=== PATIENT | male | born 1965 | race Two or more races ===

== ENCOUNTER 2025-05-28 08:12 | Inpatient (IN) ==
--- NOTE | 2025-05-28 08:30 | Emergency Department Note ---
Impression & Plan Chest pain, Acute CHF, URI (upper respiratory infection), Abdominal pain ED Provider Note Provider: Armani Sargent MD CHIEF COMPLAINT: Chest pain, abdominal pain, nausea HISTORY OF PRESENT ILLNESS: Patient is a 59-year-old gentleman reported history of diabetes and CHF presenting here via ambulance from the [facility]. 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 Patient evidently over the last 3 days states that experiencing central to thoracic back chest discomfort. Also states he developed during that time some mid abdominal discomfort. Has had nausea and some episodes of vomiting this morning. States he does feel that he swollen little bit. States that he was taken by the "feds "and they did not give him all his medications. Patient states he takes medications to prevent him from swelling. Patient states he does feel somewhat swollen in his legs. No fever or cough or cold reported. No trauma reported. Received 324 mg of aspirin as well as 3 doses of nitroglycerin for hypertension and chest pain and route in the ambulance without significant improvement by his report. PAST MEDICAL HISTORY: As noted above MEDICATIONS: Reviewed medication list from the skilled nursing SOCIAL HISTORY: In immigration attention, primarily speaks Cymraes PHYSICAL EXAM: GENERAL: alert and oriented in no acute distress on stretcher, guards at bedside Head: normocephalic and atraumatic EYES: No injection, discharge or icterus. EOMI. NECK: Trachea midline. Good range of motion ENT: Mucous membranes pink and moist. LUNGS: Airway patent. No retractions. Breath sounds clear but mildly tachypneic HEART: Regular rate and rhythm. No chest wall tenderness with subcutaneous left upper chest wall pacemaker noted ABDOMEN: Soft no guarding but some mild mid abdominal tenderness. No masses appreciable. SKIN: Acyanotic, warm, dry, without rashes EXTREMITIES: Without swelling, tenderness or deformity NEUROLOGICAL: No focal deficits. No aphasia. No facial droop or slurred speech. EK bpm normal sinus rhythm without PVC or PAC. Left axis. LVH changes. Lead 6 ST depression and T wave inversion noted. QTc 525. CONTINUOUS CARDIAC MONITORING: was ordered and showed a heart rate of 90s bpm in normal sinus rhythm occasional PVCs Patient's laboratory studies and imaging reviewed. Differential includes Cardiac ischemia, aortic dissection, pulmonary embolism, pneumothorax, pneumonia, pericarditis, myocarditis, esophageal rupture, GERD, cholecystitis/cholangitis, pancreatitis, musculoskeletal, as well as other pathologies. IMPRESSION/MEDICAL DECISION MAKING: Limited history available in medical record about the patient as he was not known to the area. Patient himself is not the exact best historian. Relates that he may have had medication issues as he has been recently taken into immigration custody. Reports a significant cardiac history and does have an AICD. Will attempt interrogation although he does not know the brand of the device. EKG with LVH changes and some lead 6 changes but no clear STEMI. Chest pain rating to the abdomen with nausea and vomiting. Mildly tender in the abdomen. Question if this is primarily more cardiac in nature. Do question if there is some component of fluid overload given his history of CHF that he tells me and possible medication issues. He is on diuretics and states he has had IV I believe he describes furosemide in the past with good improvement. Blood work is obtained and chest x-ray be obtained. Will look for findings of fluid overload. Patient not hypoxic but is mildly tachypneic. Blood work here without severe anemia, electrolyte abnormalities, or evidence of renal dysfunction. Will complete CTs of the chest abdomen pelvis to exclude PE given his recent travel and retirement as well as his complaints of chest pain and abdominal pain. Chest x-ray with evidence of fluid overload per radiology and my interpretation certainly agree with severe cardiomegaly.. Blood work without significant leukocytosis with some mild anemia of 11.4. Slightly elevated bilirubin AST ALT and alkaline phosphatase 2 point 1/56/75/167. No lipase elevation. Doubt acute hepatitis. Do question if component of fluid overload is causing these changes but again did complete a CT abdomen pelvis to look for any other intra-abdominal processes. Certainly consideration if this could be biliary in nature. Troponin does return elevated 37.6 and I am not sure of his baseline. BNP elevated at 2700. Will give a dose of IV Lasix here for diuresis. Respiratory viral panel does return positive for coronavirus and enterorhinovirus as well likely contributing. CT chest abdomen pelvis per radiology without evidence of PE or pneumonia and trace ascites questioning early cirrhosis. Cholelithiasis without definite evidence of acute cholecystitis is noted without gallbladder distention, biliary ductal dilation, choledocholithiasis however some trace peristolic fluid. Again we will bring in for diuresis and continued symptom control. We likely trace pericholecystic fluid is more related to his fluid overload and ascites. Minimal abdominal tenderness and not experiencing Saldivar sign. Reached out to the hospitalist team. DIAGNOSIS: Chest pain, CHF, abdominal pain and nausea, URI DISPOSITION: Hospitalist will evaluate Patient was agreeable with this plan. 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 Beliefs That Will Affect Care: None Current Living Situation: Other Current Living Situation Comment: [facility] Feels Safe at Home: Yes Assistive Devices: Glasses Allergies Allergies Allergy/AdvReac Type Severity Reaction Status Date / Time No Known Allergies Allergy Unverified 05/28/25 12:18 Home Meds Home Medications Medication Instructions Recorded Confirmed acetaminophen 325 mg tablet 650 mg PO BID PRN Pain 05/28/25 05/28/25 aspirin 81 mg chewable tablet 81 mg PO DAILY 05/28/25 05/28/25 atorvastatin 20 mg tablet 20 mg PO HS 05/28/25 05/28/25 carvedilol 12.5 mg tablet 12.5 mg PO BID 05/28/25 05/28/25 empagliflozin 10 mg tablet 10 mg PO DAILY 05/28/25 05/28/25 (Jardiance) furosemide 40 mg tablet 40 mg PO DAILY 05/28/25 05/28/25 meloxicam 15 mg tablet 15 mg PO DAILY 05/28/25 05/28/25 metformin 500 mg tablet 500 mg PO BID 05/28/25 05/28/25 omeprazole 40 mg capsule,delayed 40 mg PO DAILY 05/28/25 05/28/25 release spironolactone 25 mg tablet 25 mg PO DAILY 05/28/25 05/28/25 Results & Data (ED) Vital Signs Vital Signs - 24 hr 05/28/25 07:52 05/28/25 07:52 05/28/25 08:27 Temperature 36.8 C Temperature Source Oral Pulse Rate 96 H 92 H Pulse Rate [Apical] Pulse Rate from SpO2 Sensor Respiratory Rate 22 16 Respiratory Effort / Characteristics Respiratory Depth Normal Blood Pressure 143/112 H Blood Pressure [Right Arm] Blood Pressure Mean 122 Blood Pressure Mean [Right Arm] Blood Pressure Position [Right Arm] Pulse Oximetry 99 99 98 Oxygen Delivery Method Room Air Room Air Room Air Sepsis Recent Fever Within 48 Hours No Sepsis New/Unexplained Change in Mental Status No Sepsis Action Taken by Nursing No Action Required 05/28/25 08:31 05/28/25 09:00 05/28/25 10:00 Temperature Temperature Source Pulse Rate 96 H 94 H 100 H Pulse Rate [Apical] Pulse Rate from SpO2 Sensor 99 H 99 H Respiratory Rate 16 23 Respiratory Effort / Characteristics Respiratory Depth Blood Pressure 149/112 H 141/108 H Blood Pressure [Right Arm] Blood Pressure Mean 124 119 Blood Pressure Mean [Right Arm] Blood Pressure Position [Right Arm] Pulse Oximetry 97 94 Oxygen Delivery Method Sepsis Recent Fever Within 48 Hours Sepsis New/Unexplained Change in Mental Status Sepsis Action Taken by Nursing 05/28/25 11:17 Temperature Temperature Source Pulse Rate Pulse Rate [Apical] 101 H Pulse Rate from SpO2 Sensor Respiratory Rate 22 Respiratory Effort / Characteristics Non-Labored Spontaneous Respiratory Depth Normal Blood Pressure Blood Pressure [Right Arm] 152/109 H Blood Pressure Mean Blood Pressure Mean [Right Arm] 123 Blood Pressure Position [Right Arm] Semi-fowlers Pulse Oximetry 93 Oxygen Delivery Method Room Air Sepsis Recent Fever Within 48 Hours Sepsis New/Unexplained Change in Mental Status Sepsis Action Taken by Nursing Laboratory Data 05/28/25 08:30 05/28/25 08:30 Lab Results 05/28/25 05/28/25 05/28/25 Range/Units 08:30 08:40 10:24 WBC 7.61 (4.8-10.8) K/ul RBC 4.16 L (4.70-6.10) M/uL Hgb 11.4 L (14.0-18.0) g/dl Hct 35.3 L (42.0-52.0) % MCV 84.9 (80.0-100.0) fL MCH 27.4 (25.0-34.0) pg MCHC 32.3 (32.0-36.0) g/dL RDW Std Deviation 52.2 H (36.4-46.3) fL RDW Coeff of Jocelynn 16.8 H (11.5-14.5) % Plt Count 252 (130-400) K/uL MPV 11.0 (9.4-12.4) fL Immature Gran % (Auto) 0.3 % Neut % (Auto) 73.0 % Lymph % (Auto) 15.0 % Crowley % (Auto) 9.6 % Eos % (Auto) 1.6 % Baso % (Auto) 0.5 % Neut # (Auto) 5.56 (1.40-6.50) K/uL Lymph # (Auto) 1.14 L (1.20-3.40) K/uL Crowley # (Auto) 0.73 H (0.11-0.59) K/uL Eos # (Auto) 0.12 (0.00-0.50) K/uL Baso # (Auto) 0.04 (0.00-0.20) K/uL Immature Gran # (Auto) 0.02 (0.01-0.20) K/uL PT 11.9 (9.0-12.0) Seconds INR 1.1 (0.9-1.1) APTT 30 (21-31) Seconds PTT Ratio 1.1 Sodium 137 (136-145) mmol/L Potassium 3.4 L (3.5-5.1) mmol/L Chloride 104 (98-107) mmol/L Carbon Dioxide 26 (21-32) mmol/L Anion Gap 7 (3-11) BUN 15 (6-23) mg/dl Creatinine 0.86 (0.6-1.4) mg/dl Est Cr Clr Drug Dosing Not Reportable eGFR 99.13 BUN/Creatinine Ratio 17.4 (10-20) Glucose 122 H (70-99(Fasting)) mg/dl Calcium 9.3 (8.6-10.3) mg/dl Total Bilirubin 2.1 H (0.2-1.0) mg/dl AST 56 H (13-39) U/L ALT 75 H (7-52) U/L Alkaline Phosphatase 167 H (34-104) U/L Troponin I High Sens 37.6 H 42.6 H (0-20) pg/ml B-Natriuretic Peptide 2702 H (0-100) pg/ml Total Protein 7.1 (6.0-8.3) gm/dl Albumin 3.8 (3.4-5.0) gm/dl Globulin 3.3 (2.5-4.0) gm/dl Albumin/Globulin Ratio 1.2 (0.9-2) Lipase 6 L (11-82) U/L Urine Color Urine Appearance (Clear) Urine pH (4.5-7.5) Ur Specific Ar[place] (1.000-1.030) Urine Protein (Negative) Urine Glucose (UA) (Negative) Urine Ketones (Negative) Urine Blood (Negative) Urine Nitrite (Negative) Urine Bilirubin (Negative) Urine Urobilinogen (Negative) Ur Leukocyte Esterase (Negative) Urine WBC (Auto) (0-5) /hpf Urine RBC (Auto) (0-2) /hpf U Hyaline Cast (Auto) (0-2) /lpf U Epithel Cells (Auto) (0-2) /hpf Urine Bacteria (Auto) (None Seen) Urine Comment Adenovirus (PCR) Not Detected (NotDetected) B. pertussis DNA (PCR) Not Detected (NotDetected) B.parapertussis DNA PCR Not Detected (NotDetected) C. pneumoniae DNA (PCR) Not Detected (NotDetected) Coronavirus OC43 (PCR) Not Detected (NotDetected) Coronavirus HKU1 (PCR) Not Detected (NotDetected) Coronavirus 229E (PCR) DETECTED A (NotDetected) SARS-CoV-2 (PCR) Not Detected (NotDetected) Coronavirus NL63 (PCR) Not Detected (NotDetected) Human Metapneumovir PCR Not Detected (NotDetected) Influenza Type A (PCR) Not Detected (NotDetected) Influenza Type B (PCR) Not Detected (NotDetected) M. pneumoniae (PCR) Not Detected (NotDetected) Parainfluenza 1 (PCR) Not Detected (NotDetected) Parainfluenza 2 (PCR) Not Detected (NotDetected) Parainfluenza 3 (PCR) Not Detected (NotDetected) Parainfluenza 4 (PCR) Not Detected (NotDetected) RSV (PCR) Not Detected (NotDetected) Entero/Rhino (PCR) DETECTED A (NotDetected) 05/28/25 Range/Units 11:13 WBC (4.8-10.8) K/ul RBC (4.70-6.10) M/uL Hgb (14.0-18.0) g/dl Hct (42.0-52.0) % MCV (80.0-100.0) fL MCH (25.0-34.0) pg MCHC (32.0-36.0) g/dL RDW Std Deviation (36.4-46.3) fL RDW Coeff of Jocelynn (11.5-14.5) % Plt Count (130-400) K/uL MPV (9.4-12.4) fL Immature Gran % (Auto) % Neut % (Auto) % Lymph % (Auto) % Crowley % (Auto) % Eos % (Auto) % Baso % (Auto) % Neut # (Auto) (1.40-6.50) K/uL Lymph # (Auto) (1.20-3.40) K/uL Crowley # (Auto) (0.11-0.59) K/uL Eos # (Auto) (0.00-0.50) K/uL Baso # (Auto) (0.00-0.20) K/uL Immature Gran # (Auto) (0.01-0.20) K/uL PT (9.0-12.0) Seconds INR (0.9-1.1) APTT (21-31) Seconds PTT Ratio Sodium (136-145) mmol/L Potassium (3.5-5.1) mmol/L Chloride (98-107) mmol/L Carbon Dioxide (21-32) mmol/L Anion Gap (3-11) BUN (6-23) mg/dl Creatinine (0.6-1.4) mg/dl Est Cr Clr Drug Dosing eGFR BUN/Creatinine Ratio (10-20) Glucose (70-99(Fasting)) mg/dl Calcium (8.6-10.3) mg/dl Total Bilirubin (0.2-1.0) mg/dl AST (13-39) U/L ALT (7-52) U/L Alkaline Phosphatase (34-104) U/L Troponin I High Sens (0-20) pg/ml B-Natriuretic Peptide (0-100) pg/ml Total Protein (6.0-8.3) gm/dl Albumin (3.4-5.0) gm/dl Globulin (2.5-4.0) gm/dl Albumin/Globulin Ratio (0.9-2) Lipase (11-82) U/L Urine Color Yellow Urine Appearance Clear (Clear) Urine pH 7.0 (4.5-7.5) Ur Specific Ar[place] 1.036 H (1.000-1.030) Urine Protein Trace H (Negative) Urine Glucose (UA) Negative (Negative) Urine Ketones Negative (Negative) Urine Blood Negative (Negative) Urine Nitrite Negative (Negative) Urine Bilirubin Negative (Negative) Urine Urobilinogen Negative (Negative) Ur Leukocyte Esterase Negative (Negative) Urine WBC (Auto) 0-5 (0-5) /hpf Urine RBC (Auto) 0-2 (0-2) /hpf U Hyaline Cast (Auto) 0-2 (0-2) /lpf U Epithel Cells (Auto) 0-2 (0-2) /hpf Urine Bacteria (Auto) None Seen (None Seen) Urine Comment Adenovirus (PCR) (NotDetected) B. pertussis DNA (PCR) (NotDetected) B.parapertussis DNA PCR (NotDetected) C. pneumoniae DNA (PCR) (NotDetected) Coronavirus OC43 (PCR) (NotDetected) Coronavirus HKU1 (PCR) (NotDetected) Coronavirus 229E (PCR) (NotDetected) SARS-CoV-2 (PCR) (NotDetected) Coronavirus NL63 (PCR) (NotDetected) Human Metapneumovir PCR (NotDetected) Influenza Type A (PCR) (NotDetected) Influenza Type B (PCR) (NotDetected) M. pneumoniae (PCR) (NotDetected) Parainfluenza 1 (PCR) (NotDetected) Parainfluenza 2 (PCR) (NotDetected) Parainfluenza 3 (PCR) (NotDetected) Parainfluenza 4 (PCR) (NotDetected) RSV (PCR) (NotDetected) Entero/Rhino (PCR) (NotDetected) Administered Medications Discontinued Medications Carvedilol (Carvedilol 3.125 Mg Tab) 3.125 mg PO NOW ONE Stop: 05/28/25 13:16 Last Admin: 05/28/25 13:45 Dose: 3.125 mg Documented By: MMF Furosemide (Furosemide 40 Mg/4 Ml Vial) 60 mg IV ONE ONE Stop: 05/28/25 10:03 Last Admin: 05/28/25 10:23 Dose: 60 mg Documented By: QGV Ioversol (Optiray 320 125ml) 120 ml IV ONCE ONE Stop: 05/28/25 09:34 Last Admin: 05/28/25 09:34 Dose: 120 ml Documented By: JAR Morphine Sulfate (Morphine Sulfate 2 Mg/Ml Carp) 2 mg IV NOW STA Stop: 05/28/25 08:28 Last Admin: 05/28/25 08:42 Dose: 2 mg Documented By: TDM Ondansetron HCl (Ondansetron Inj 2 Mg/Ml 2 Ml Vial) 4 mg IV NOW STA Stop: 05/28/25 08:28 Last Admin: 05/28/25 08:43 Dose: 4 mg Documented By: TDM Pantoprazole Sodium (Pantoprazole 40 Mg Tab) 40 mg PO NOW STA Stop: 05/28/25 13:11 Last Admin: 05/28/25 13:46 Dose: 40 mg Documented By: MMF Imaging Data Radiologist's Impression: Chest X-Ray 05/28/25 08:27 XR chest 1V portable CLINICAL HISTORY: Chest pain, chf hx COMPARISON STUDY: None FINDINGS: Single view portable chest demonstrates gross cardiomegaly with a configuration consistent with either cardiomyopathy or pericardial effusion. There is pulmonary vascular congestion present. There is no focal airspace opacity or pleural effusion. There is a left-sided pacemaker defibrillator identified. IMPRESSION: Gross cardiomegaly and pulmonary vascular congestion. ACT 112: Negative or not required by law. Electronically signed by: Miguelina Mckinley M.D. 05/28/2025 9:00 AM Abdomen/Pelvis CT 05/28/25 08:[address] WITH IV CONTRAST HISTORY: Acute chest and upper abdominal pain with nausea and vomiting cp to abd pain, n/v TECHNIQUE: Multiaxial CT images of the abdomen and pelvis were performed following the IV administration of 120 cc of Optiray, A dose lowering technique was utilized adhering to the principles of ALARA. COMPARISON STUDY: CTA chest of same day FINDINGS: CTA chest dictated separately. Partially imaged cardiomegaly with trace pericardial effusion and cardiac pacer/AICD. Trace pleural effusions are noted along with mild subsegmental bibasilar alveolar opacities with intralobular septal thickening. No pneumatosis or pneumoperitoneum. Unremarkable spleen, and adrenal glands. Focus of the pancreatic tail on image 92 series 13 measures 8 mm which may represent a sidebranch IPMN. Cholelithiasis with no significant gallbladder distention, there is however trace pericholecystic fluid. No biliary ductal dilation or choledocholithiasis. Nonspecific heterogeneity of the liver. Subcentimeter hypodensity of the left hepatic lobe is too small to characterize. Mild marginal nodularity of the liver. Mild cortical scarring of the mid inferior pole right kidney. Subcentimeter probable cyst in the lateral interpolar left kidney. No hydronephrosis. Borderline enlarged prostate. Urinary bladder wall thickening with partial distention. Atherosclerosis of the aorta. No lymphadenopathy. Trace ascites. Diastases recti with small fat filled umbilical hernia. Mild generalized body wall edema. No bowel obstruction or bowel wall thickening. Normal appendix. No acute fractures seen. IMPRESSION: 1. Cardiomegaly with possible mild interstitial pulmonary edema, trace pleural and pericardial effusions. 2. Trace ascites noted with findings suspicious for early cirrhosis. Correlate with LFTs. 3. Cholelithiasis without definite CT evidence of acute cholecystitis. 4. No bowel obstruction or bowel wall thickening. Normal appendix. 5. Mild prostamegaly. ACT 112: Negative or not required by law. The above report was generated using voice recognition software. It may contain grammatical, syntax or spelling errors. Electronically signed by: Kit Johnson M.D. 05/28/2025 9:58 AM Chest CTA 05/28/25 08:53 CT ANGIOGRAM OF THE CHEST CLINICAL HISTORY: Substernal chest pain. Nausea and vomiting. COMPARISON STUDY: Chest x-ray dated 06/17. TECHNIQUE: Following the IV administration of 120 cc of Optiray 320, CT angiogram of the chest was performed from the upper abdomen to the thoracic inlet utilizing the pulmonary embolus protocol. Images are reviewed in the axial, sagittal, and coronal planes. 3-D MIPS images are created and assessed. IV contrast was administered without complication. A dose lowering technique was utilized adhering to the principles of ALARA. CT DOSE: 2183.47 mGy.cm FINDINGS: Thyroid: Mildly enlarged and heterogeneous. Thoracic aorta: The thoracic aorta is normal in caliber and demonstrates standard 3-vessel arch anatomy. No dissection is seen. Pulmonary vasculature: The pulmonary trunk is dilated, measuring 4.1 cm in diameter. This suggests pulmonary artery hypertension. There are no filling defects identified in main, lobar, or segmental pulmonary branches to suggest pulmonary embolus. Heart: A pacemaker is present in the left chest wall. The heart is markedly enlarged noting a small pericardial effusion. Lungs and pleural spaces: Evaluation of the lung parenchyma is degraded by motion artifact. There is no airspace consolidation. Trace pleural effusions are observed. Atelectasis is seen at the lung bases. There are tiny calcified granulomas. Mediastinum: There is no mediastinal lymphadenopathy. Mildred: Clear. Axillae: There is no axillary lymphadenopathy. Upper abdomen: Reflux of contrast into the dilated IVC and hepatic veins indicates cardiac dysfunction. There is trace perisplenic ascites. A small hiatal hernia is noted. Skeletal structures: The skeletal structures are osteopenic. No lytic or blastic bony lesions are seen. IMPRESSION: 1. There is no evidence of pulmonary embolus in the main, lobar, or segmental pulmonary arteries. 2. Marked cardiomegaly and cardiac pacemaker with evidence of pulmonary artery hypertension. 3. No airspace consolidation pneumonia. 4. Trace pleural effusions. 5. Trace perisplenic ascites. 6. Additional findings as above. ACT 112: Negative or not required by law. Electronically signed by: Ashkan Mcclure M.D. 05/28/2025 9:51 AM Discharge Plan Visit Data Chief Complaint: Chest Pain Stated Complaint: CHEST PAIN ED Provider: Armani Sargent Discharge Problem: Chest pain, Acute CHF, URI (upper respiratory infection), Abdominal pain Patient Disposition: Admitted As Inpatient Condition: Fair Discharge Instructions Interventions: ED Discharge Assessment Last Done: 05/28/25 14:40
[2025-05-28] MEDS: MoRPHine SULFATE 2 MG/ML CARP IV STA (08:42)
[2025-05-28] MEDS: ONDANSETRON INJ 2 MG/ML 2 ML VIAL IV STA (08:43)
[2025-05-28 08:49] LABS: Hematocrit (blood only) 35.3 % (42.0-52.0); Hemoglobin 11.4 g/dl (14.0-18.0); Immature Granulocytes # (auto) 0.02 K/uL (0.01-0.20); Immature Granulocytes % (auto) 0.3 %; Mean Corpuscular Hemoglobin 27.4 pg (25.0-34.0); Mean Corpuscular Volume 84.9 fL (80.0-100.0); Platelet Count 252 K/uL (130-400); RDW Standard Deviation 52.2 fL (36.4-46.3); Red Blood Count 4.16 M/uL (4.70-6.10); White Blood Count 7.61 K/ul (4.8-10.8)
--- NOTE | 2025-05-28 09:01 | XRay Report ---
XR chest 1V portable CLINICAL HISTORY: Chest pain, chf hx COMPARISON STUDY: None FINDINGS: Single view portable chest demonstrates gross cardiomegaly with a configuration consistent with either cardiomyopathy or pericardial effusion. There is pulmonary vascular congestion present. T here is no focal airspace opacity or pleural effusion. There is a left-sided pacemaker defibrillator identified. IMPRESSION: Gross cardiomegaly and pulmonary vascular congestion. ACT 112: Negative or not required by law. Electronically signed by: Miguelina Mckinley M.D. 05/28/2025 9:00 AM
[2025-05-28 09:05] LABS: Alanine Aminotransferase 75 U/L (7-52); Albumin Globulin Ratio 1.2 (0.9-2); Alkaline Phosphatase 167 U/L (34-104); Anion Gap 7 (3-11); Bilirubin,Total 2.1 mg/dl (0.2-1.0); Blood Urea Nitrogen 15 mg/dl (6-23); Calcium 9.3 mg/dl (8.6-10.3); Carbon Dioxide 26 mmol/L (21-32); Chloride 104 mmol/L (98-107); Globulin 3.3 gm/dl (2.5-4.0); Glucose 122 mg/dl (70-99(Fasting)); Lipase 6 U/L (11-82); Potassium 3.4 mmol/L (3.5-5.1); Sodium 137 mmol/L (136-145); Total Protein 7.1 gm/dl (6.0-8.3)
[2025-05-28 09:30] LABS: INR 1.1 (0.9-1.1); Partial Thromboplastin Time 30 Seconds (21-31); Prothrombin Time 11.9 Seconds (9.0-12.0)
[2025-05-28] MEDS: OPTIRAY 320 125ml IV ONE (09:34)
--- NOTE | 2025-05-28 09:53 | CT Scan Report ---
CT ANGIOGRAM OF THE CHEST CLINICAL HISTORY: Substernal chest pain. Nausea and vomiting. COMPARISON STUDY: Chest x-ray dated 06/17. TECHNIQUE: Following the IV administration of 120 cc of Optiray 320, CT angiogram of the chest was pe rformed from the upper abdomen to the thoracic inlet utilizing the pulmonary embolus protocol. Images are reviewed in the axial, sagittal, and coronal planes. 3-D MIPS images are created and assessed. I V contrast was administered without complication. A dose lowering technique was utilized adhering to the principles of ALARA. CT DOSE: 2183.47 mGy.cm FINDINGS: Thyroid: Mildly enlarged and heterogeneous. Thoracic aorta: The thoracic aorta is normal in caliber and demonstrates standard 3-vessel arch anato my. No dissection is seen. Pulmonary vasculature: The pulmonary trunk is dilated, measuring 4.1 cm in diameter. This suggests pu lmonary artery hypertension. There are no filling defects identified in main, lobar, or segmental pul monary branches to suggest pulmonary embolus. Heart: A pacemaker is present in the left chest wall. The heart is markedly enlarged noting a small p ericardial effusion. Lungs and pleural spaces: Evaluation of the lung parenchyma is degraded by motion artifact. There is no airspace consolidation. Trace pleural effusions are observed. Atelectasis is seen at the lung base s. There are tiny calcified granulomas. Mediastinum: There is no mediastinal lymphadenopathy. Mildred: Clear. Axillae: There is no axillary lymphadenopathy. Upper abdomen: Reflux of contrast into the dilated IVC and hepatic veins indicates cardiac dysfunctio n. There is trace perisplenic ascites. A small hiatal hernia is noted. Skeletal structures: The skeletal structures are osteopenic. No lytic or blastic bony lesions are see n. IMPRESSION: 1. There is no evidence of pulmonary embolus in the main, lobar, or segmental pulmonary arteries. 2. Marked cardiomegaly and cardiac pacemaker with evidence of pulmonary artery hypertension. 3. No airspace consolidation pneumonia. 4. Trace pleural effusions. 5. Trace perisplenic ascites. 6. Additional findings as above. ACT 112: Negative or not required by law. Electronically signed by: Ashkan Mcclure M.D. 05/28/2025 9:51 AM
--- NOTE | 2025-05-28 09:59 | CT Scan Report ---
ABDOMEN AND PELVIS CT WITH IV CONTRAST HISTORY: Acute chest and upper abdominal pain with nausea and vomiting cp to abd pain, n/v TECHNIQUE: Multiaxial CT images of the abdomen and pelvis were performed following the IV administrat ion of 120 cc of Optiray, A dose lowering technique was utilized adhering to the principles of ALARA . COMPARISON STUDY: CTA chest of same day FINDINGS: CTA chest dictated separately. Partially imaged cardiomegaly with trace pericardial effusio n and cardiac pacer/AICD. Trace pleural effusions are noted along with mild subsegmental bibasilar al veolar opacities with intralobular septal thickening. No pneumatosis or pneumoperitoneum. Unremarkable spleen, and adrenal glands. Focus of the pancreatic tail on image 92 series 13 measures 8 mm which may represent a sidebranch IPMN. Cholelithiasis with n o significant gallbladder distention, there is however trace pericholecystic fluid. No biliary ductal dilation or choledocholithiasis. Nonspecific heterogeneity of the liver. Subcentimeter hypodensity o f the left hepatic lobe is too small to characterize. Mild marginal nodularity of the liver. Mild cortical scarring of the mid inferior pole right kidney. Subcentimeter probable cyst in the late ral interpolar left kidney. No hydronephrosis. Borderline enlarged prostate. Urinary bladder wall thi ckening with partial distention. Atherosclerosis of the aorta. No lymphadenopathy. Trace ascites. Leia stases recti with small fat filled umbilical hernia. Mild generalized body wall edema. No bowel obstr uction or bowel wall thickening. Normal appendix. No acute fractures seen. IMPRESSION: 1. Cardiomegaly with possible mild interstitial pulmonary edema, trace pleural and pericardial effusi ons. 2. Trace ascites noted with findings suspicious for early cirrhosis. Correlate with LFTs. 3. Cholelithiasis without definite CT evidence of acute cholecystitis. 4. No bowel obstruction or bowel wall thickening. Normal appendix. 5. Mild prostamegaly. ACT 112: Negative or not required by law. The above report was generated using voice recognition software. It may contain grammatical, syntax o r spelling errors. Electronically signed by: Kit Johnson M.D. 05/28/2025 9:58 AM
[2025-05-28 10:12] LABS: Chlamydia pneumoniae PCR Not Detected (NotDetected); Coronavirus 229E PCR DETECTED (NotDetected); Coronavirus CoV-2 (COVID19)PCR Not Detected (NotDetected); Coronavirus HKU1 PCR Not Detected (NotDetected); Coronavirus NL63 PCR Not Detected (NotDetected); Coronavirus OC43PCR Not Detected (NotDetected); Human Metapneumovirus PCR Not Detected (NotDetected); Parainfluenza Virus 1 PCR Not Detected (NotDetected); Parainfluenza Virus 2 PCR Not Detected (NotDetected); Parainfluenza Virus 3 PCR Not Detected (NotDetected); Parainfluenza Virus 4 PCR Not Detected (NotDetected); Respiratory Syncytial VirusPCR Not Detected (NotDetected); Rhinovirus/Enterovirus PCR DETECTED (NotDetected)
[2025-05-28] MEDS: FUROSEMIDE 40 MG/4 ML VIAL IV ONE (10:23)
[2025-05-28 11:30] LABS: Appearance Urine Clear (Clear); Bacteria Urine Automated None Seen (None Seen); Cast Urine Automated 0-2 /lpf (0-2); Epithelial Cell Urine Auto 0-2 /hpf (0-2); Glucose Urine UA Negative (Negative); RBC Urine Automated 0-2 /hpf (0-2); WBC Urine Automated 0-5 /hpf (0-5)
[2025-05-28] MEDS ORDERED: PHARMACY GLYCEMIC MGMT CONSULT PRN (13:59)
--- NOTE | 2025-05-28 14:02 | History & Physical Report ---
Date of Service May 28, 2025 Assessment & Plan (1) Acute CHF: Plan: Acute systolic cardiomyopathy in a 60 yo male with dyslipidemia. Will admit to PCU will aggressively diurese check daily weights. Is and Os. check echo Appears this is likely severe given his current meds and AICD. (2) URI (upper respiratory infection): Plan: patient with cornoavirus will place on droplet precautions [place]oyt COVID Plan Diabetes: Patient denies this diagnosis, will check A1C History of Present Illness Chief Complaint: SOB Primary Care Provider: [facility] Patient melvin history of nonischemic cardiomyopahty AICD reports having worsening SOB since he was moved to this new residential center. Patient reports he was on the wrong medications, and he did not receive his diuretics. Patient noticed swellng in his legs, abdomen, followed by SOB. This slowly worsened until he started to complain of chest pain with deep breaths, accompanied by nausea and vomting. This prompted to bring him to the hospital. Patient reports feeling better after diuresis. Allergies Allergy/AdvReac Type Severity Reaction Status Date / Time No Known Allergies Allergy Unverified 05/28/25 12:18 Home Medications Medication Instructions Recorded Confirmed Type acetaminophen 325 mg tablet 650 mg PO BID PRN Pain 05/28/25 05/28/25 History aspirin 81 mg chewable tablet 81 mg PO DAILY 05/28/25 05/28/25 History atorvastatin 20 mg tablet 20 mg PO HS 05/28/25 05/28/25 History carvedilol 12.5 mg tablet 12.5 mg PO BID 05/28/25 05/28/25 History empagliflozin 10 mg tablet 10 mg PO DAILY 05/28/25 05/28/25 History (Jardiance) furosemide 40 mg tablet 40 mg PO DAILY 05/28/25 05/28/25 History meloxicam 15 mg tablet 15 mg PO DAILY 05/28/25 05/28/25 History metformin 500 mg tablet 500 mg PO BID 05/28/25 05/28/25 History omeprazole 40 mg capsule,delayed 40 mg PO DAILY 05/28/25 05/28/25 History release spironolactone 25 mg tablet 25 mg PO DAILY 05/28/25 05/28/25 History Past Med/Surg History Problem List (Updated 05/28/25 @ 14:45 by Background Daemon) Abdominal pain (Acute) URI (upper respiratory infection) (Acute) Acute CHF (Acute) Chest pain (Acute) Social History Smoking Status: Never smoker Hx Alcohol Use: No Hx Substance Use: No Preferred Language: Malay Communication Ability: Effective Communication Tools: IPad 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 Beliefs That Will Affect Care: None Current Living Situation: Other Current Living Situation Comment: [facility] Feels Safe at Home: Yes Assistive Devices: Glasses Review of Systems Constitutional: no fever and no body aches Eyes: no blind spots Ear, Nose, Mouth, Throat: no ear pain Respiratory: + cough Cardiovascular: + chest pain Gastrointestinal: + abdominal pain Genitourinary: no dysuria Musculoskeletal: no back pain Integumentary: no acne Neurologic: no gait abnormality Psychiatric: no behavioral changes Endocrine: + fatigue Hematologic / Lymphatic: no easy bleeding Allergy / Immunological: no GI upset with certain foods Physical Exam Constitutional: WD/WN, vitals as above Eyes: PERRL, conjunctivae normal, anicteric sclerae ENMT: external ear and nose normal, oropharynx normal Neck: trachea midline, no thyromegaly Respiratory: bibasilar rales Cardiovascular: RRR, no murmur, no edema Gastrointestinal (Abdomen): normal bowel sounds, soft, nontender, no hepatosplenomegaly Musculoskeletal: bilateral lower extremity edema. Skin: no rashes, warm and dry Neurologic: PERRL, EOMI, accommodation nl, no face palsy, no dysarthria Psychiatric: A+Ox3, euthymic affect Lymphatic: no cervical or axillary lymphadenopathy Results & Data Results & Data Vital Signs (Past 12 Hours) Vital Signs Temp Pulse Pulse Resp BP BP Pulse Ox 05/28/25 13:00 97 H 16 141/101 H 97 05/28/25 11:17 101 H 22 152/109 H 93 05/28/25 10:00 100 H 23 141/108 H 94 05/28/25 09:00 94 H 16 149/112 H 97 05/28/25 08:31 96 H 05/28/25 08:27 92 H 16 98 05/28/25 07:52 99 05/28/25 07:52 36.8 C 96 H 22 143/112 H 99 O2 Del Method 05/28/25 13:00 Room Air 05/28/25 11:17 Room Air 05/28/25 10:00 05/28/25 09:00 05/28/25 08:31 05/28/25 08:27 Room Air 05/28/25 07:52 Room Air 05/28/25 07:52 Room Air PG Care Time/CCT Total # of Minutes Spent Total Time Spent with Patient: Total time spent is greater than 50% in coordination of care (as documented) at patient's floor/unit and/or counseling patient: Coding Level of Care Code 52657 INT INP/OBS CARE 3/75MIN Diagnoses Acute CHF I50.9 URI (upper respiratory infection) J06.9
[2025-05-28] MEDS ORDERED: Patient's HEIGHT &/or WEIGHT Needed SCH (14:30)
[2025-05-28] MEDS ORDERED: GLUCOSE 10 TAB/TUBE PO PRN (16:15)
[2025-05-28] MEDS ORDERED: DEXTROSE 50% 50 ML SYRINGE IV PRN (16:15)
[2025-05-28] MEDS ORDERED: GLUCOSE 40% GEL 15 GM TUBE PO PRN (16:15)
[2025-05-28] MEDS ORDERED: GLUCAGON FOR INJ 1 MG VIAL SQ PRN (16:15)
[2025-05-28] MEDS ORDERED: CARBOHYDRATES FOR HYPOGLYCEMIA PO PRN (16:15)
[2025-05-28] MEDS: INSULIN ASPART PER UNIT CHARGE SC SCH (17:42)
--- NOTE | 2025-05-28 17:49 | Electrocardiogram Report ---
Test Reason : Blood Pressure : */* mmHG Vent. Rate : 96 BPM Atrial Rate : 96 BPM P-R Int : 184 ms QRS Dur : 140 ms QT Int : 416 ms P-R-T Axes : 8 -32 146 degrees QTcB Int : 525 ms Normal sinus rhythm Left axis deviation Left ventricular hypertrophy with QRS widening Non-specific intra-ventricular conduction delay T wave abnormality, consider lateral ischemia Abnormal ECG No previous ECGs available Confirmed by Shaw Patricia ([id number]) on 05/28/2025 5:48:55 PM Referred By: Confirmed By: Shaw Patricia
[2025-05-28 19:22] VITALS: RESP 18
[2025-05-28] MEDS: ATORVASTATIN 20 MG TAB PO SCH (20:10)
[2025-05-28] MEDS: POTASSIUM CHLORIDE CRTAB 20 MEQ TABCR PO STA (22:36)
[2025-05-29 03:24] VITALS: O2SAT 93
[2025-05-29 06:25] LABS: Hematocrit (blood only) 33.3 % (42.0-52.0); Hemoglobin 11.2 g/dl (14.0-18.0); Mean Corpuscular Hemoglobin 27.9 pg (25.0-34.0); Mean Corpuscular Volume 82.8 fL (80.0-100.0); Platelet Count 218 K/uL (130-400); RDW Standard Deviation 50.8 fL (36.4-46.3); Red Blood Count 4.02 M/uL (4.70-6.10); White Blood Count 5.92 K/ul (4.8-10.8)
[2025-05-29 06:49] LABS: Anion Gap 9.0 (3-11); Blood Urea Nitrogen 20.0 mg/dl (6-23); Calcium 9.2 mg/dl (8.6-10.3); Carbon Dioxide 25.0 mmol/L (21-32); Chloride 104.0 mmol/L (98-107); Creatinine Clr Calc Pharmacy 69.5 ml/min; Glucose 105.0 mg/dl (70-99(Fasting)); Potassium 3.5 mmol/L (3.5-5.1); Sodium 138.0 mmol/L (136-145)
[2025-05-29] MEDS: ASPIRIN 81 MG CHEW PO SCH (09:25)
[2025-05-29] MEDS: SPIRONOLACTONE 25 MG TAB PO SCH (09:26)
[2025-05-29] MEDS: EMPAGLIFLOZIN 10 MG TAB PO SCH (09:26)
[2025-05-29] MEDS: FUROSEMIDE 40 MG/4 ML VIAL IV SCH (09:27)
[2025-05-29 10:38] LABS: Hemoglobin A1C 6.2 % (4.5-5.6)
[2025-05-29 11:01] VITALS: BP 129/86; TEMP 98.6
--- NOTE | 2025-05-29 12:48 | XCELERA ---
[id number]
--- NOTE | 2025-05-29 13:08 | Discharge Summary ---
Discharge Summary Date of Service May 29, 2025 Principal Dx & Hospital Course #1 = Principal Diagnosis (1) Acute CHF: Acute systolic cardiomyopathy in a 60 yo male with dyslipidemia. Will admit to PCU will aggressively diurese check daily weights. Is and Os. check echo Appears this is likely severe given his current meds and AICD. (2) URI (upper respiratory infection): patient with cornoavirus will place on droplet precautions [place]t COVID Plan Diabetes: Patient denies this diagnosis, will check A1C Admission HPI Per Admitting Provider Patient melvin history of nonischemic cardiomyopahty AICD reports having worsening SOB since he was moved to this new [facility] center. Patient reports he was on the wrong medications, and he did not receive his diuretics. Patient noticed swellng in his legs, abdomen, followed by SOB. This slowly worsened until he started to complain of chest pain with deep breaths, accompanied by nausea and vomting. This prompted to bring him to the hospital. Patient reports feeling better after diuresis. Discharge Exam Constitutional WD/WN, vitals as above Eyes PERRL, conjunctivae normal, anicteric sclerae ENMT external ear and nose normal, oropharynx normal Neck trachea midline, no thyromegaly Cardiovascular RRR, no murmur, no edema Gastrointestinal (Abdomen) normal bowel sounds, soft, nontender, no hepatosplenomegaly Skin no rashes, warm and dry Neurologic PERRL, EOMI, accommodation nl, no face palsy, no dysarthria Psychiatric A+Ox3, euthymic affect Lymphatic no cervical or axillary lymphadenopathy Discharge Plan Discharge Items Reason For Visit: CHEST PAIN Condition on Discharge: Fair Follow-up/Referrals: [facility] [Other] Medications and DC Order Prescriptions: No Action furosemide 40 mg Tablet 40 mg PO DAILY metformin 500 mg Tablet 500 mg PO BID acetaminophen 325 mg Tablet 650 mg PO BID PRN (Reason: Pain) atorvastatin 20 mg Tablet 20 mg PO HS carvedilol 12.5 mg Tablet 12.5 mg PO BID Rx Instructions: must administer with a meal/food meloxicam 15 mg Tablet 15 mg PO DAILY Rx Instructions: w/food omeprazole 40 mg Capsule,Delayed Release(Dr/Ec) 40 mg PO DAILY spironolactone 25 mg Tablet 25 mg PO DAILY aspirin 81 mg Tablet,Chewable 81 mg PO DAILY Jardiance 10 mg Tablet 10 mg PO DAILY Admission Data Admit Date/Time: 05/28/25 11:33 Attending Provider: Nicho Dahl Admit Provider: Nicho Dahl Primary Care Provider: JOCELYNE [place] Other Providers: Nicho Dahl Hospital Stay Data Consultations 05/28/25 11:00 ED Decision to Admit Stat Diagnostic Imagining Performed 05/28/25 08:53 CT abd pelvis IV con only Stat CT angio chest PE protocol Stat Coding Diagnoses Acute CHF I50.9 URI (upper respiratory infection) J06.9
[2025-05-29 13:43] LABS: Anion Gap 8.0 (3-11); Blood Urea Nitrogen 21.0 mg/dl (6-23); Calcium 9.2 mg/dl (8.6-10.3); Carbon Dioxide 28.0 mmol/L (21-32); Chloride 101.0 mmol/L (98-107); Creatinine Clr Calc Pharmacy 65.6 ml/min; Glucose 84.0 mg/dl (70-99(Fasting)); Potassium 3.4 mmol/L (3.5-5.1); Sodium 137.0 mmol/L (136-145)
[2025-05-29] MEDS: FUROSEMIDE INJ 20 MG/2 ML VIAL IV ONE (15:19)
[2025-05-29] MEDS: POTASSIUM CHLORIDE CRTAB 20 MEQ TABCR PO STA ×2 (15:19→17:40)
[2025-05-29 17:28] VITALS: PULSE 80
== END 2025-05-29 19:15 | DRG 292 ==
LOC: SUATTDRO → ED 08:12 → EDBD 08:12 → 4W 11:33